=== PATIENT | female | born 1950 | race Caucasian/White ===

== ENCOUNTER → 2023-05-20 15:27 | Outpatient (BNVA) | payer MEDICARE, SELFPAY | PROVIDERS: Referring Provider Family Medicine; Visit Provider Student in an Organized Health Care Education/Training Program | DX: M25.561 Pain in right knee (principal); M25.562 Pain in left knee | CPT/HCPCS: 73560; 73565; 97760; 99204; L1812 ==

== ENCOUNTER 2023-05-20 16:11 | Outpatient (CLI) | payer MEDICARE, SELFPAY | END 2023-05-20 16:12 | disposition home or self-care (01) | LOC: SPT 16:12 | PROVIDERS: Visit Provider Student in an Organized Health Care Education/Training Program | DX: Z46.89 Encounter for fitting and adjustment of other specified devices (principal); M25.561 Pain in right knee | CPT/HCPCS: 97760; 99204; L1812 ==